=== PATIENT | female | born 1945 | race Caucasian/White ===

== ENCOUNTER 2017-12-30 09:44 | Outpatient (CLI) | payer MEDICARE, OTHER ==
[~2017-12-30 09:44] MED LIST: ALBU18HF2 INH; AMIO200T57 PO; APIX5TAB3 PO; CALC-854 PO; FURO-149 PO; GINK120C PO; GLUC1TAB21 PO; HYDR-3965 PO; LACT1CAP73 PO; POTA20TA19 PO; UBID100C16 PO; VITA1TAB20 PO; VITC500T PO
[2017-12-30 09:47] VITALS: BP 110/67
== END 2017-12-30 10:53 | disposition home or self-care (01) ==
LOC: ORTHO 09:44
PROVIDERS: ATTEND Nurse Practitioner Family
DX: S52.501A Unspecified fracture of the lower end of right radius, initial encounter for closed fracture (principal); I48.91 Unspecified atrial fibrillation; I10 Essential (primary) hypertension; Z95.2 Presence of prosthetic heart valve; Z88.0 Allergy status to penicillin; X58.XXXA Exposure to other specified factors, initial encounter; Y93.89 Activity, other specified; Y92.89 Other specified places as the place of occurrence of the external cause; Y99.8 Other external cause status
CPT/HCPCS: 73100; 99213

== ENCOUNTER 2018-01-13 10:39 | Outpatient (CLI) | payer MEDICARE, OTHER ==
[~2018-01-13] VITALS: Ht 167.6 cm; Wt 80.0 kg
[2018-01-13 10:37] VITALS: BP 110/67
== END 2018-01-13 11:50 | disposition home or self-care (01) ==
LOC: ORTHO 10:39
PROVIDERS: ATTEND Nurse Practitioner Family
DX: S52.501D Unspecified fracture of the lower end of right radius, subsequent encounter for closed fracture with routine healing (principal); I10 Essential (primary) hypertension; I48.91 Unspecified atrial fibrillation; J45.909 Unspecified asthma, uncomplicated; Z88.0 Allergy status to penicillin; X58.XXXD Exposure to other specified factors, subsequent encounter
CPT/HCPCS: 73110; 99213

== ENCOUNTER 2018-02-03 11:07 | Outpatient (CLI) | payer MEDICARE, OTHER ==
[~2018-02-03 11:07] MED LIST changes: -HYDR-3965 PO
[2018-02-03 11:15] VITALS: BP 97/61
== END 2018-02-03 11:44 | disposition home or self-care (01) ==
LOC: ORTHO 11:07
PROVIDERS: ATTEND Nurse Practitioner Family
DX: S52.501G Unspecified fracture of the lower end of right radius, subsequent encounter for closed fracture with delayed healing (principal); S52.611G Displaced fracture of right ulna styloid process, subsequent encounter for closed fracture with delayed healing; I48.91 Unspecified atrial fibrillation; Z88.0 Allergy status to penicillin; Z88.8 Allergy status to other drugs, medicaments and biological substances; X58.XXXD Exposure to other specified factors, subsequent encounter
CPT/HCPCS: 73110

== ENCOUNTER 2018-03-19 11:51 | Outpatient (CLI) | payer MEDICARE, OTHER ==
[~2018-03-19 11:51] MED LIST changes: +AMIO200T54 PO; -AMIO200T57 PO
[2018-03-19 11:53] VITALS: BP 96/67
== END 2018-03-19 12:15 | disposition home or self-care (01) ==
LOC: ORTHO 11:51
PROVIDERS: ATTEND Nurse Practitioner Family
DX: S52.501D Unspecified fracture of the lower end of right radius, subsequent encounter for closed fracture with routine healing (principal); I48.91 Unspecified atrial fibrillation; I10 Essential (primary) hypertension; J45.909 Unspecified asthma, uncomplicated; Z88.0 Allergy status to penicillin; Z79.82 Long term (current) use of aspirin; Z88.8 Allergy status to other drugs, medicaments and biological substances; Z95.2 Presence of prosthetic heart valve; X58.XXXD Exposure to other specified factors, subsequent encounter
CPT/HCPCS: 73110; 99213

== ENCOUNTER 2018-12-31 05:50 | Day surgery (SDC) | payer MEDICARE, OTHER ==
[2018-12-30 15:52] LABS: BASOPHILS # (AUTO) 0.1 X10'3 (0-0.2); BASOPHILS % (AUTO) 0.6 % (0-1); EOSINOPHILS # (AUTO) 0.4 X10'3 (0-0.9); EOSINOPHILS % (AUTO) 3.8 % (0-6); HEMATOCRIT 39.8 % (35.0-45.0); HEMOGLOBIN 13.3 g/dl (12.0-16.0); LYMPHOCYTES # (AUTO) 1.4 X10'3 (1.1-4.8); MEAN CORPUSCULAR HEMOGLOBIN 31.3 PG (27.0-31.0); MEAN CORPUSCULAR HGB CONC 33.5 g/dL (33.0-36.5); MEAN CORPUSCULAR VOLUME 93.2 FL (78-98); MEAN PLATELET VOLUME 8.6 FL (7.4-10.4); MONOCYTES # (AUTO) 0.9 X10'3 (0-0.9); MONOCYTES % (AUTO) 9.4 % (2-12); NEUTROPHILS # (AUTO) 6.6 X10'3 (1.8-7.7); NEUTROPHILS % (AUTO) 71.2 % (42-75); PLATELET COUNT 207 X10'3 (140-440); RED BLOOD COUNT 4.27 X10'6 (4.20-5.60); RED CELL DISTRIBUTION WIDTH 13.7 % (11.5-14.5); WHITE BLOOD COUNT 9.3 X10'3 (4.5-11.0)
[2018-12-30 16:03] LABS: ALBUMIN 3.4 G/DL (3.4-5.0); ANION GAP 9 (8-16); BLOOD UREA NITROGEN 33 MG/DL (7-18); BUN/CREATININE RATIO 25.4 (6.6-38.0); CALCIUM 8.9 MG/DL (8.5-10.1); CHLORIDE 106 MMOL/L (99-107); GLUCOSE 103 MG/DL (70-104); POTASSIUM 4.3 MMOL/L (3.5-5.1); SODIUM 140 MMOL/L (135-145); TOTAL CARBON DIOXIDE 24.7 MMOL/L (24-32); eGFR 40 ML/MIN
[2018-12-30 16:11] LABS: PARTIAL THROMBOPLASTIN TIME 25 SECONDS (22-32)
[2018-12-31] VITALS (11 sets, daily range): BP systolic 91–108; BP diastolic 55–69
[~2018-12-31] VITALS: Ht 167.6 cm; Wt 70.0 kg
[2018-12-31] MEDS ORDERED: normal saline 1000ml 1,000 ML IV SCH (06:15)
[2018-12-31] MEDS ORDERED: DILT120C52 PO (06:24)
[2018-12-31] MEDS ORDERED: ASPI-611 PO (06:24)
[2018-12-31] MEDS ORDERED: DRON400T6 PO (06:24)
[2018-12-31] MEDS ORDERED: cefazolin/dext.iso 2gm/100ml 100 ML IV ONE ×2 (06:25→08:12)
[2018-12-31] MEDS ORDERED: midazolam 2 mg/2 ml injection ONE (08:12)
[2018-12-31] MEDS ORDERED: LIDOcaine 1% w/EPI 1:100,000 30ml vial (MDV) ONE (08:12)
[2018-12-31] MEDS ORDERED: fentaNYL/PF 50MCG/1 ML 2ML syringe ONE (08:12)
[2018-12-31] MEDS ORDERED: ceFAZolin 1000mg inj ONE (08:12)
[2018-12-31] MEDS ORDERED: verapamil 2.5 mg/ml inj IV ONE (08:41)
[2018-12-31] MEDS ORDERED: potassium Cl 20 mEq SR tablet PO SCH (10:43)
[2018-12-31] MEDS ORDERED: furosemide 40mg tablet PO SCH (10:43)
[2018-12-31] MEDS ORDERED: dronedarone hcl 400mg tablet PO SCH (10:43)
[2018-12-31] MEDS ORDERED: aspirin 81mg tab.chew PO SCH (10:44)
[2018-12-31] MEDS ORDERED: diltiazem SR 60mg capsule (twice daily) PO SCH (11:00)
[2018-12-31] MEDS ORDERED: vancomycin/NS 1 GM ADD-VANTAGE 250 ML X 1 DOSE IV ONE (12:32)
[2018-12-31] MEDS ORDERED: non-formulary drug (Ginkgo Biloba Extract (Ginkgo Biloba) 120 MG) PO SCH (20:00)
== END 2018-12-31 16:30 | disposition home or self-care (01) ==
LOC: SSTAY O 05:50
PROVIDERS: ATTEND Internal Medicine Cardiovascular Disease
DX: I49.5 Sick sinus syndrome (principal); E78.5 Hyperlipidemia, unspecified; I11.0 Hypertensive heart disease with heart failure; Z79.899 Other long term (current) drug therapy; I25.10 Atherosclerotic heart disease of native coronary artery without angina pectoris; E66.3 Overweight; I50.30 Unspecified diastolic (congestive) heart failure; I48.0 Paroxysmal atrial fibrillation; Z98.890 Other specified postprocedural states; Z79.82 Long term (current) use of aspirin; Z95.2 Presence of prosthetic heart valve; Z98.51 Tubal ligation status; Z88.0 Allergy status to penicillin; Z88.8 Allergy status to other drugs, medicaments and biological substances; Z88.7 Allergy status to serum and vaccine
CPT/HCPCS: 33208; 36415; 71045; 80048; 85025; 85610; 85730; 93005; 99152; 99153; C1785; C1894; C1898; J0690; J2250; J3010; J3370; J3490; A4565; J7030

== ENCOUNTER 2019-05-19 06:41 | Day surgery (SDC) | payer MEDICARE, OTHER ==
[2019-05-18 12:06] LABS: ALBUMIN 3.7 G/DL (3.4-5.0); ANION GAP 10 (8-16); BLOOD UREA NITROGEN 26 MG/DL (7-18); CALCIUM 8.9 MG/DL (8.5-10.1); CHLORIDE 105 MMOL/L (99-107); CREATININE 1.13 MG/DL (0.40-0.90); GLUCOSE 116 MG/DL (70-104); POTASSIUM 4.3 MMOL/L (3.5-5.1); SODIUM 144 MMOL/L (135-145); TOTAL CARBON DIOXIDE 29.5 MMOL/L (24-32); eGFR 47 ML/MIN
[2019-05-18 12:08] LABS: BASOPHILS # (AUTO) 0.1 X10'3 (0-0.2); BASOPHILS % (AUTO) 0.6 % (0-1); EOSINOPHILS # (AUTO) 0.2 X10'3 (0-0.9); EOSINOPHILS % (AUTO) 1.7 % (0-6); HEMATOCRIT 41.8 % (35.0-45.0); HEMOGLOBIN 13.7 g/dl (12.0-16.0); LYMPHOCYTES % (AUTO) 10.4 % (21-51); MEAN CORPUSCULAR HEMOGLOBIN 30.9 PG (27.0-31.0); MEAN CORPUSCULAR HGB CONC 32.9 g/dL (33.0-36.5); MEAN CORPUSCULAR VOLUME 93.9 FL (78-98); MONOCYTES # (AUTO) 0.7 X10'3 (0-0.9); MONOCYTES % (AUTO) 7.6 % (2-12); NEUTROPHILS # (AUTO) 7.8 X10'3 (1.8-7.7); NEUTROPHILS % (AUTO) 79.7 % (42-75); PLATELET COUNT 273 X10'3 (140-440); RED BLOOD COUNT 4.45 X10'6 (4.20-5.60); RED CELL DISTRIBUTION WIDTH 15.3 % (11.5-14.5); WHITE BLOOD COUNT 9.8 X10'3 (4.5-11.0)
[2019-05-19] VITALS (15 sets, daily range): BP systolic 98–110; BP diastolic 51–67
[~2019-05-19] VITALS: Ht 172.7 cm; Wt 74.2 kg
[~2019-05-19 06:41] MED LIST changes: -ALBU18HF2 INH; -AMIO200T54 PO; -APIX5TAB3 PO; +ASPI-611 PO; -CALC-854 PO; +DILT120C52 PO; +DRON400T6 PO; -GLUC1TAB21 PO; -LACT1CAP73 PO; -UBID100C16 PO; -VITA1TAB20 PO; -VITC500T PO
[2019-05-19] MEDS ORDERED: atropine 0.1mg/ml 10ml syringe IV ONE (07:15)
[2019-05-19] MEDS ORDERED: diphenhydrAMINE 25mg capsule PO ONE (07:15)
[2019-05-19] MEDS ORDERED: morphine 10mg/ml inj. IV ONE (07:15)
[2019-05-19] MEDS ORDERED: MIDAZolam 5mg/ml 2ml vial IV ONE (07:15)
[2019-05-19] MEDS ORDERED: amiodarone in dextrose, iso-osm 150mg/100ml bag IV ONE (07:15)
[2019-05-19] MEDS ORDERED: LORazepam 0.5 MG tablet PO ONE (07:15)
[2019-05-19] MEDS ORDERED: DIGO125T PO (07:19)
[2019-05-19] MEDS ORDERED: RIVA20TA PO (07:19)
[2019-05-19] MEDS ORDERED: FLEC100T2 PO (07:19)
[2019-05-19] MEDS ORDERED: FURO-150 PO (07:19)
== END 2019-05-19 11:50 | disposition home or self-care (01) ==
LOC: SSTAY O 06:41
PROVIDERS: ATTEND Internal Medicine Cardiovascular Disease
DX: I48.19 Other persistent atrial fibrillation (principal); I25.10 Atherosclerotic heart disease of native coronary artery without angina pectoris; E78.49 Other hyperlipidemia; I11.0 Hypertensive heart disease with heart failure; I50.30 Unspecified diastolic (congestive) heart failure; M19.90 Unspecified osteoarthritis, unspecified site; E03.9 Hypothyroidism, unspecified; E66.3 Overweight; Z68.26 Body mass index [BMI] 26.0-26.9, adult; Z98.51 Tubal ligation status; Z98.890 Other specified postprocedural states; Z95.0 Presence of cardiac pacemaker
CPT/HCPCS: 36415; 80048; 85025; 85610; 92960; 93005; J0282; J0461; J2250; J2270; Q0163